=== PATIENT | female | born 1960 | race Caucasian/White ===

== ENCOUNTER 2019-02-20 08:43 | Day surgery (SDC) | payer OTHER ==
[~2019-02-20] VITALS: Ht 165.1 cm; Wt 63.4 kg
[~2019-02-20 08:43] MED LIST: BENADRYL25 MG; CEPH500 PO; CLOB.05TO TOP; CYCL10; CYCL10 PO; DIAZIDE; DIPH50 PO; Dyazide 37.5-21 EACH PO; ESTR2; ESTR2 PO; Esgic Tablet1 EACH PO; FIORICET 50-301 EACH; FURO20 PO; HYDCHL12.5; HYDCHL12.5 PO; HYDR25SUP PR; Hydrochloroth12.5 MG PO; INDERAL PO; INDERAL XL80 MG PO; Imitrex50 MG; Imitrex50 MG PO; LOSHYD PO; Lorazepam1 MG PO; OMEP20ER; OMEPRAZOLE MAGN20 MG; OXYACE5T PO; Omeprazole20 M1 PO; PROP80ER PO; Propranolol HCl80 MG; TRIHYD253B PO; Transderm-Scop1 EACH TD
[2019-02-20] MEDS ORDERED: Stool Softener250 MG (09:22)
[2019-02-20] MEDS ORDERED: ACET500 (09:22)
--- NOTE | 2019-02-20 10:25 | NUR ---
02/20/19 1025 Tasneem Singer RN UPDATED PT OF DELAY IN START TIME DUE TO PREVIOUS PROCEDURE TAKING LONGER THAN EXPECTED. STEVAN AT BEDSIDE. CALL LIGHT WITHIN REACH. PT IS UNDERSTANDING.
--- NOTE | 2019-02-20 11:58 | NUR ---
02/20/19 1158 Tasneem Singer GTTS USED FOR IRRIGATION
== END 2019-02-20 12:26 | disposition home or self-care (01) ==
LOC: ORSCSDS 08:43
PROVIDERS: Internal Medicine Gastroenterology
PROC: 0DJD8ZZ Inspection of Lower Intestinal Tract, Via Natural or Artificial Opening Endoscopic (ICD-10-PCS; principal; 2019-02-20 10:15)
DX: Z12.11 Encounter for screening for malignant neoplasm of colon (principal); K64.8 Other hemorrhoids; K57.30 Diverticulosis of large intestine without perforation or abscess without bleeding; Z86.010 Personal history of colon polyps; K21.9 Gastro-esophageal reflux disease without esophagitis; M79.7 Fibromyalgia; Z79.899 Other long term (current) drug therapy
CPT/HCPCS: J2250; J2704; J7120

== ENCOUNTER → 2019-10-11 | Outpatient (CLI) | payer OTHER ==
[~2019-10-11] MED LIST changes: +ACET500; +Stool Softener250 MG
[2019-10-11 11:18] LABS: BASOPHILS ABSOLUTE AUTO 0.05 K/mm3 (0.00-0.23); BASOPHILS PERCENT AUTO 1 % (0-2); EOSINOPHILS ABSOLUTE AUTO 0.31 K/mm3 (0.00-0.68); EOSINOPHILS PERCENT AUTO 6 % (0-6); Hematocrit 34.2 % (33.0-51.0); Hemoglobin 10.8 g/dL (11.5-16.0); IMMATURE GRAN ABSOLUTE AUTO 0.02 K/mm3 (0.00-0.10); IMMATURE GRAN PERCENT AUTO 0 % (0-1); LYMPHOCYTES ABSOLUTE AUTO 1.43 K/mm3 (0.84-5.20); LYMPHOCYTES PERCENT AUTO 28 % (21-46); MONOCYTES ABSOLUTE AUTO 0.43 K/mm3 (0.16-1.47); MONOCYTES PERCENT AUTO 9 % (4-13); Mean Corpuscular HGB 28.7 pg (26.0-34.0); Mean Corpuscular HGB Conc 31.6 g/dL (31.5-36.5); Mean Corpuscular Volume 91 fL (80-100); NEUTROPHILS PERCENT AUTO 56 % (41-73); Platelet Count 242 K/mm3 (150-400); RDW Coefficient Variation 13.4 % (11.7-14.2); RDW Standard Deviation 45.3 fL (35.1-46.3); Red Blood Cell Count 3.76 M/mm3 (3.80-5.20); White Blood Cell Count 5.04 K/mm3 (4.00-11.30)
[2019-10-11 12:07] LABS: Alanine Aminotransfer (ALT/SGP 15 U/L (12-78); Albumin, Blood 3.2 g/dL (3.4-5.0); Alk Phos 51 U/L (50-136); Anion Gap 3 mmol/L (6-16); Aspartate Aminotrans (AST/SGOT 12 U/L (12-37); Bilirubin, Total 0.2 mg/dL (0.1-1.0); Blood Urea Nitrogen 12 mg/dL (8-24); Bun/Creatinine Ratio 15.9 (12.0-20.0); CHOL/HDL RATIO 2.6; CO2, Blood 28 mmol/L (21-32); Calcium, Blood 8.4 mg/dL (8.5-10.1); Chloride, Blood 107 mmol/L (98-108); Cholesterol 194 mg/dL (50-200); Creatinine, Blood 0.75 mg/dL (0.40-1.00); Globulin, Blood 3.1 g/dL (2.2-4.0); Glomerular Filtration Rate >60 (60-); Glucose, Blood 88 mg/dL (70-99); HDL Cholesterol 76 mg/dL (>39); LDL/HDL RATIO 1.3; Low Density Lipoprotein Chol 98 mg/dL (0-110); Potassium, Blood 3.4 mmol/L (3.5-5.5); Sodium, Blood 138 mmol/L (136-145); Total Protein, Blood 6.3 g/dL (6.4-8.2); Triglycerides 99 mg/dL (30-160); Very Low Density Lipoprot Chol 19 mg/dL (6-32)
== END ==
LOC: LAB SHORT 10:17 → LAB 10:17
PROVIDERS: Obstetrics & Gynecology
DX: Z01.419 Encounter for gynecological examination (general) (routine) without abnormal findings (principal); I35.1 Nonrheumatic aortic (valve) insufficiency; R53.83 Other fatigue
CPT/HCPCS: 80053; 80061; 83525; 84443; 85025

== ENCOUNTER → 2021-11-11 | Outpatient (CLI) | payer OTHER ==
[2021-11-12 14:06] LABS: Stool Occult Blood Guaiac 1 Neg (Neg)
== END | disposition home or self-care (01) ==
LOC: LAB 07:15 → LAB SHORT 07:15
PROVIDERS: Internal Medicine
DX: D53.9 Nutritional anemia, unspecified (principal)
CPT/HCPCS: 82272

== ENCOUNTER 2022-02-16 10:27 | Day surgery (SDC) | payer OTHER ==
[~2022-02-16] VITALS: Ht 165.1 cm; Wt 66.5 kg
[~2022-02-16 10:27] MED LIST changes: +ZYRTEC10 M2 PO
--- NOTE | 2022-02-16 10:48 | NUR ---
Patient States Post-Procedure ride home has been arranged. Patient states colon prep results clear. Patient confirms NPO status and agrees with scheduled COLONOSCOPY.
--- NOTE | 2022-02-16 11:07 | NUR ---
Ambulatory in Day Surgery History, Chart, Medications and Allergies reviewed before start of procedure. Lungs clear T/O to Auscultation. Patient confirms NPO status and agrees with scheduled surgery. Pre-Op teaching done. Pt verbalizes understanding. Patient States Post-Procedure ride home has been arranged.
--- NOTE | 2022-02-16 12:21 | NUR ---
02/16/22 1221 Lindsey Renteria History, Chart, Medications and Allergies reviewed before start of procedure. Patient confirms NPO status and agrees with scheduled surgery. 3-LEAD EKG REVIEWED WITH PHYSICIAN PRIOR TO START OF PROCEDURE. MONITOR INTACT WITH CONTINUOUS PULSE OXIMETRY AND INTERMITTENT BP. PATIENT DETERMINED TO BE ASA APPROPRIATE FOR PROPOFOL SEDATION PRIOR TO START OF PROCEDURE BY
--- NOTE | 2022-02-16 13:40 | NUR ---
VSS. Patient denies pain. Verbalizes no c/o. Up to dress with steady gait. Denies dizziness upon standing. Discharge instructions reviewed with patient. Patient verbalizes understanding. Copy given to patient to take home. Patient States Post-Procedure ride home has been arranged with .
== END 2022-02-16 13:45 | disposition home or self-care (01) ==
LOC: ORSCMMR 10:27 → ORSCSDS 12:00 → ORD 12:00 → ORSCMMR 12:00
PROVIDERS: Internal Medicine Gastroenterology
PROC: 0DBH8ZX Excision of Cecum, Via Natural or Artificial Opening Endoscopic, Diagnostic (ICD-10-PCS; principal; 2022-02-16 12:00)
DX: Z12.11 Encounter for screening for malignant neoplasm of colon (principal); D12.0 Benign neoplasm of cecum; K57.30 Diverticulosis of large intestine without perforation or abscess without bleeding; K64.8 Other hemorrhoids; Z86.010 Personal history of colon polyps; K21.9 Gastro-esophageal reflux disease without esophagitis; M79.7 Fibromyalgia; Z79.899 Other long term (current) drug therapy
CPT/HCPCS: 88305; J2250; J2704; J7120

== ENCOUNTER 2025-07-03 08:31 | Day surgery (SDC) | payer BC ==
[~2025-07-03] VITALS: Ht 165.1 cm; Wt 66.3 kg
[2025-07-03] MEDS ORDERED: POTA10T (09:03)
[2025-07-03 11:26] VITALS: BP 111/69
== END 2025-07-03 11:05 | disposition home or self-care (01) ==
LOC: ORSCSDS 08:31
PROVIDERS: Internal Medicine Gastroenterology
PROC: 0DJ08ZZ Inspection of Upper Intestinal Tract, Via Natural or Artificial Opening Endoscopic (ICD-10-PCS; principal; 2025-07-03 10:15)
PROC: 0DJD8ZZ Inspection of Lower Intestinal Tract, Via Natural or Artificial Opening Endoscopic (ICD-10-PCS; principal; 2025-07-03 10:15)
DX: R13.10 Dysphagia, unspecified (principal); Z12.11 Encounter for screening for malignant neoplasm of colon; Z86.0100 Personal history of colon polyps, unspecified; K57.30 Diverticulosis of large intestine without perforation or abscess without bleeding
CPT/HCPCS: J2704; J7120